=== PATIENT | female | born 1985 | race Caucasian/White ===

== ENCOUNTER 2023-10-17 02:32 | Emergency (ER) | payer OTHER ==
[~2023-10-17] VITALS: Ht 165.1 cm; Wt 63.0 kg
[2023-10-17 02:41] VITALS: BP_SYST 138; PULSE 90; RESP 16; TEMP 97.7; O2SAT 96
== END 2023-10-17 03:03 | disposition home or self-care (01) ==
LOC: SED 02:32
DX: F10.129 Alcohol abuse with intoxication, unspecified (principal); Y90.9 Presence of alcohol in blood, level not specified; Y08.89XA Assault by other specified means, initial encounter; Y93.89 Activity, other specified; Y92.89 Other specified places as the place of occurrence of the external cause; Y99.8 Other external cause status
CPT/HCPCS: 99283